=== PATIENT | female | born 1950 | race Caucasian/White ===

== ENCOUNTER 2020-08-17 11:25 | Outpatient (REF) | payer MEDICARE, SELFPAY | END 2020-08-17 11:26 | disposition home or self-care (01) | LOC: HO.LNP 11:25 | PROVIDERS: Visit Provider Nurse Practitioner Family | DX: R52 Pain, unspecified (principal); Z20.822 Contact with and (suspected) exposure to COVID-19 | CPT/HCPCS: U0003 ==

== ENCOUNTER 2023-04-03 08:27 | Outpatient (AMB) | payer MEDICARE, SELFPAY ==
[2023-04-03 08:56] VITALS: BP 122/70; PULSE 68; TEMP 36.2; O2SAT 98; BMI 26.4
--- NOTE | 2023-04-03 08:56 | AM.OFFWIN_ITS ---
Intake Vital Signs 04/03/23 08:56 Height 5 ft 3 in Weight 149 lb BMI 26.4 BP 122/70 Blood Pressure Location Rt brachial Position Sitting Pulse 68 Pulse Source Pulse Oximeter Temp 97.2 F Temp Source Temporal Artery Scan Pulse Oximetry (%) 98 Intake Visit Reasons: EP, Inflammation to left side of cheek Intake Note: pt is here for c/o inflammation of left side of cheek, suspects it is a infected tooth Patient Tobacco Use Status: Never used Tobacco Allergies No Known Allergies Allergy (Verified 04/03/23 09:34) HPI EP, Inflammation to left side of cheek HPI Details 72-year-old female presents to the office for a sick visit. Patient is reporting a swelling on the left side of the face for the past 3 months. Initially she thought it could be a sinus issue and later went to see a dentist. She is having some fullness on the left side of the face and discomfort. Patient has not taken any medications for this to date. [facility] Surgical History (Updated 11/13/20 @ 11:39 by Sharon Gu, JACKIE, [facility]) History of colonoscopy Social History Patient Tobacco Use Status: Never used Tobacco Physical Exam Const General: cooperative and healthy appearing Nutritional Appearance: well nourished Orientation/consciousness: patient oriented x3 Limitations: no limitations HEENT Other: Oral cavity: Multiple cavities with poor hygiene. No tender area palpated. Head: Yes normal to inspection Eyes General: appearance normal, both eyes and all related structures Neck Neck: Yes normal visual inspection Chest Chest palpation & inspection: normal palpation of entire chest wall Resp Effort & Inspection: normal respiratory effort Skin Other: Tender swelling in the maxilla, left side. The skin over the swelling is mildly erythematous. Neuro General: patient oriented x3 Assessment & Plan Assessment & Plan (1) Cellulitis: Code(s): L03.90 - Cellulitis, unspecified Plan: Cephalexin twice a day for 10 days. Should the tenderness or swelling not go way, I recommended that she follow-up with the primary care for a CT scan of the face. Coding Level of Care Code Est Pt Level 4 (32198) Diagnoses Cellulitis L03.90
== END 2023-04-03 09:55 | disposition home or self-care (01) ==
PROVIDERS: PCP Internal Medicine; Visit Provider Internal Medicine
DX: L03.90 Cellulitis, unspecified (principal)
CPT/HCPCS: 99214

== ENCOUNTER 2023-08-16 10:28 | Outpatient (AMB) | payer MEDICARE, SELFPAY ==
--- NOTE | 2023-08-16 10:40 | MHC.PC.OV ---
Vital Signs 08/16/23 10:44 Height 5 ft 3 in Weight 147 lb BMI 26.0 BP 136/80 Blood Pressure Location Lt brachial Position Sitting Pulse 61 Pulse Source Pulse Oximeter Pulse Oximetry (%) 98 Oxygen Delivery Method Room Air Intake Visit Reasons: PE Intake Note: Pt is here today for PE. Allergies No Known Allergies Allergy (Verified 08/16/23 10:48) Medication List - Last Reconciled 08/16/23 by Latasha Gillis MD No Known Home Meds Tobacco use date assessed: 08/16/23 Fall risk assessment: No Falls in past year Last assessed Fall Risk: 08/16/23 Dental Screening Dental Screen Date: 08/16/23 Did you have a dental visit in the last 12 months?: No Did you have a dental problem in the last 6 months where you did not have access to dental care?: No Was dental information given to patient?: Patient declined HPI PE HPI Details Pt presents for PE. PFSH Surgical History History of colonoscopy Family History Father Stomach cancer Mother Lung cancer Social History (Updated 08/16/23 @ 11:06 by Latasha Gillis MD) Household Members Other:: lives alone, Housing: House Patient Tobacco Use Status: Never used Tobacco e-Cigarette/Vaping Use: Never Used Current occupational status: retired Cognitive needs: No Hearing needs: No Vision needs: Yes Questionnaire PHQ-9 Over the last 2 weeks, how often have you been bothered by any of the following problems? 1. Little interest or pleasure in doing things: several days 2. Feeling down, depressed, or hopeless: several days 3. Trouble falling or staying asleep, or sleeping too much: not at all 4. Feeling tired or having little energy: not at all 5. Poor appetite or overeating: not at all 6. Feeling bad about yourself - or that you are a failure or have let yourself or your family down: not at all 7. Trouble concentrating on things, such as reading the newspaper or watching television: not at all 8. Moving or speaking so slowly that other people could have noticed. Or the opposite - being so fidgety or restless that you have been moving around a lot more than usual: not at all 9. Thoughts that you would be better off or of hurting yourself in some way: not at all Total score: 2 Depression Screening Interpretation: Negative Depression Screening Done: Yes Source: Developed by Drs. Demario Dickerson, Brenda Brown, Cory Sewell and colleagues, with an educational scott from [employer]. Thrive Questionnaire Date Thrive assessed: 08/16/23 I am a: Patient What is your living situation today?: I have a steady place to live Within the past 12 months, did the food you bought not last and you didn't have the money to get more?: Never true Within the past 12 months, did you worry whether your food would run out before you got money to buy more?: Never true Do you have trouble paying for medicines?: No Do you have trouble getting transportation to medical appointments?: No Do you have trouble paying your heating and electricity bill?: No Do you have trouble taking care of your child, family member or friend?: No Do you have trouble with day-to-day activities such as bathing, preparing meals, shopping, managing finances, etc.?: No Are you currently unemployed and looking for a job?: No Are you interested in more education?: No Please select the resources that you would like help with: None AUDIT C Alcohol Use Questionnaire (AUDIT-C) 1. How often do you have a drink containing alcohol?: Never 3. How often do you have six or more drinks on one occasion?: Never Total Score: 0 CHANELL-7 AMB Questionnaire CHANELL-7 Date CHANELL - 7 assessed: 08/16/23 Feeling nervous, anxious, or on edge: 0 = Not at all Not being able to stop or control worryin = Not at all Worrying too much about different things: 0 = Not at all Trouble relaxin = Not at all Being so restless that it is hard to sit still: 0 = Not at all Becoming easily annoyed or irritable: 0 = Not at all Feeling afraid as if something awful might happen: 0 = Not at all Total CHANELL-7 score (0-4 normal; 5-9 mild; 10-14 moderate; 15-21 severe): 0 Source: Developed by Brenda GuzmanW. Kevin, Cory Sewell and colleagues, with an educational scott from [employer]. Review of Systems Const All systems reviewed & are unremarkable except as noted in HPI and below Reports no additional complaints Eyes Reports no additional complaints ENT Reports no additional complaints Card Reports no additional complaints Resp Reports no additional complaints GI Reports no additional complaints Reports no additional complaints Physical exam (Primary Care) Vital Signs: Last Vital Signs Pulse 61 08/16/23 10:44 BP 136/80 08/16/23 10:44 Pulse Ox 98 08/16/23 10:44 Oxygen Delivery Method Room Air 08/16/23 10:44 BMI result Body Mass Index 26.0 Tobacco/Smoking Status: Tobacco use Status Tobacco use date assessed 08/16/23 08/16/23 10:51 Patient Tobacco Use Status Never used Tobacco 08/16/23 11:06 e-Cigarette/Vaping Use Never Used 08/16/23 11:06 PHQ-9: PHQ-9 Score PHQ-9: Total score 2 08/16/23 11:08 Depression Screening Interpretation: Negative Thrive Assessment: Date of Thrive Assessment Date Thrive assessed 08/16/23 08/16/23 10:57 Const General: no acute distress HENMT Head: Yes normal to inspection Ears: hearing grossly normal bilaterally General nose exam: Normal external nose present Face and sinus: Yes normal facial exam Mouth: Normal oral and palatal mucosa present Throat: Yes posterior oropharynx normal Eyes General: appearance normal, both eyes and all related structures Neck Neck: Yes no lymphadenopathy and Yes supple Chest Breast/axilla inspection: normal inspection of the breasts Breast/axilla palpation: normal palpation of the breasts and normal palpation of the axillae Resp Effort & Inspection: normal respiratory effort Auscultation: clear to auscultation bilaterally Cardio Rhythm: regular rhythm Heart sounds: S1 normal heart sound present and S2 normal heart sound present GI Inspection: Yes normal to inspection Palpation (GI): Soft to palpation Percussion: Yes normal to percussion Auscultation: normal bowel sounds Assessment and Plan Assessment & Plan (1) Annual physical exam: Code(s): Z00.00 - Encounter for general adult medical examination without abnormal findings Plan: Well-balanced diet and regular physical activity discussed with the patient. She will return for fasting blood work. Patient declined mammogram and colonoscopy. Cologuard will be sent. (2) Vitamin D deficiency: Code(s): E55.9 - Vitamin D deficiency, unspecified Plan: Continue vitamin-D supplement check the level, patient declined DEXA. (3) Colonoscopy refused: Comment: 09/06 , Cologuard ordered Code(s): Z53.20 - Procedure and treatment not carried out because of patient's decision for unspecified reasons (4) Mammogram declined: Comment: 09/06 Code(s): Z53.20 - Procedure and treatment not carried out because of patient's decision for unspecified reasons Orders: Orders TSH reflex Free T4 Today Z00.00 - Encounter for general adult medical examination without abnormal findings Vitamin D 25-OH Total Today E55.9 - Vitamin D deficiency, unspecified, Z00.00 - Encounter for general adult medical examination without abnormal findings Lipid Panel Today Z00.00 - Encounter for general adult medical examination without abnormal findings Comprehensive [place]. Panel Fast Today Z00.00 - Encounter for general adult medical examination without abnormal findings Complete Blood Count Auto Diff Today Z00.00 - Encounter for general adult medical examination without abnormal findings Referrals Cologuard Test Z12.11 - Encounter for screening for malignant neoplasm of colon, Z12.12 - Encounter for screening for malignant neoplasm of rectum Coding Level of Care Code Est Pt Prev Care >65y(24084) Diagnoses Annual physical exam Z00.00 Vitamin D deficiency E55.9 Colonoscopy refused Z53. Mammogram declined Z
[2023-08-16 10:44] VITALS: BP 136/80; PULSE 61; O2SAT 98; BMI 26.0
== END 2023-08-16 11:28 | disposition home or self-care (01) ==
PROVIDERS: PCP Internal Medicine; Visit Provider Internal Medicine
DX: Z00.00 Encounter for general adult medical examination without abnormal findings (principal); E55.9 Vitamin D deficiency, unspecified; Z53.20 Procedure and treatment not carried out because of patient's decision for unspecified reasons
CPT/HCPCS: 99397